=== PATIENT | male | born 1990 | race African-American/Black ===

== ENCOUNTER 2017-01-02 23:45 | Emergency (ER) | payer MEDICAID ==
[2017-01-03 01:31] VITALS: BP 135/60
== END 2017-01-03 01:31 | disposition home or self-care (01) ==
LOC: ED 23:45
DX: S20.212A Contusion of left front wall of thorax, initial encounter (principal); V89.2XXA Person injured in unspecified motor-vehicle accident, traffic, initial encounter; Y93.89 Activity, other specified; Y92.89 Other specified places as the place of occurrence of the external cause; Y99.8 Other external cause status; F12.90 Cannabis use, unspecified, uncomplicated